=== PATIENT | male | born 1965 | race Caucasian/White ===

== ENCOUNTER 2017-04-09 08:39 | Day surgery (SDC) | payer OTHER ==
[~2017-04-09] VITALS: Ht 185.4 cm; Wt 106.6 kg
[~2017-04-09 08:39] MED LIST: 0.9% Sodium Chloride 1,000 ML IV SCH; Sodium Chloride LOK Flush 10 mL Syringe IV PRN; ZIPR80CA2 PO; fentaNYL-PF 50 mCg/mL 2 mL Inj IVPUSH PRN
[2017-04-09 08:53] VITALS: BP 150/97; PULSE 61; RESP 20; O2SAT 98
[2017-04-09] MEDS ORDERED: SIMV40TA5 PO (09:03)
[2017-04-09 10:44] VITALS: BP 125/80; PULSE 66; RESP 16; O2SAT 98
[2017-04-09 10:54] VITALS: BP 133/89; PULSE 67; RESP 16; O2SAT 100
--- NOTE | 2017-04-09 12:37 | ENDO ---
[address] [address] ENDOSCOPY PROCEDURE PATIENT: YULIET BARTON : 1965 MR#: [id number] ADMIT: 04/09/2017 JOB ID: [id number] DATE: 04/09/2017 PROCEDURE: Colonoscopy. INDICATION: Screening. Patient's ASA classification is two. Mallampati score is two. MEDICATIONS: Versed 5 mg, fentanyl 100 mcg. INSTRUMENT USED: PCF H 180 AL. PREPARATION QUALITY: Good. PROCEDURE DETAILS: After informed consent was obtained, the patient was brought into the GI suite, where he was placed on oxygen via nasal cannula and monitored with continuous pulse oximeter, telemetry, and blood pressure monitoring. A time-out was performed, then he was placed in the left lateral decubitus position and medications were administered for sedation. Digital rectal exam was performed which was unremarkable. The colonoscope was then inserted into the rectum and advanced under direct visualization to the cecum, which was identified by the presence of the ileocecal valve and appendiceal orifice. Once the cecum was reached, the colonoscope was withdrawn back to the rectum as the mucosa and lumen were examined. In the rectum, retroflexion was performed. Following retroflexion, the remaining air in the rectum was suctioned and the procedure was completed. FINDINGS: 1. In the descending colon there was a diminutive polyp that was removed with cold biopsy forceps. 2. In the sigmoid colon there was an approximately 6 mm sessile polyp that was removed with a hot snare. 3. A few scattered diverticula were seen throughout the left side of the colon. IMPRESSION: 1. Sigmoid colon polyp. 2. Descending colon polyp. 3. Left-sided diverticulosis. RECOMMENDATIONS: 1. Fiber rich diet. 2. Avoid NSAIDs and anticoagulants for 72 hours. 3. Repeat colonoscopy in five years. COMPLICATIONS: None. ESTIMATED BLOOD LOSS: Less than 5 mL.
--- NOTE | 2017-04-12 19:45 | PATH ---
SURGICAL PATHOLOGY Attending Physician:Sandrita Meng CASE STATUS: Signed Out PATIENT NAME: YULIET BARTON PID: [id number] : 1965 DATE COLLECTED:04/09/2017 16:24 SPECIMEN: 1: Colon, Polyp 2: Colon, Polyp CLINICAL HISTORY: 1). DESCENDING COLON POLYP 2). SIGMOID COLON POLYP FINAL DIAGNOSIS: 1.DESCENDING COLON, POLYP, BIOPSY: SUPERFICIAL PORTION OF COLORECTAL MUCOSA WITH LYMPHOID AGGREGATES AND NO DIAGNOSTIC ABNORMALITY. 2.SIGMOID COLON, POLYP, BIOPSY: HYPERPLASTIC POLYP. ICD10 K63.5 GROSS DESCRIPTION: The specimen is received in two formalin filled containers labeled with the patient's name. 1). The specimen is labeled "descending colon polyp" and consists of a 0.2 x 0.2 x 0.2 CM portion of tissue which is entirely submitted in cassette 1A. 2). The specimen is labeled "sigmoid colon polyp" and consists of a 0.3 x 0.3 x 0.3 CM portion of tissue which is entirely submitted in cassette 2A. 04/09/2017PA INTRAOP CONSULT DIAGNOSIS: MICRO DESCRIPTION: See diagnosis. ICD-9 CODES: CPT CODES: 1: 18774 2: 07416 Electronically Signed Out Karie Rubin MD [facility] Pathology [facility], [place] [address] Technical component performed at [facility], [facility] [address], [place], [address]
== END 2017-04-09 23:59 | disposition home or self-care (01) ==
LOC: END 08:39
PROVIDERS: ATTEND Internal Medicine Gastroenterology
DX: Z12.11 Encounter for screening for malignant neoplasm of colon (principal); Z83.71 Family history of colonic polyps; Z80.0 Family history of malignant neoplasm of digestive organs; K63.5 Polyp of colon; F20.0 Paranoid schizophrenia; K57.30 Diverticulosis of large intestine without perforation or abscess without bleeding
CPT/HCPCS: 45380; 45385; 99153; G0500; J2250; J3010; J7030